=== PATIENT | female | born 2000 | race Caucasian/White ===

== ENCOUNTER 2022-08-18 17:25 | Emergency (ER) | payer MEDICAID, OTHER, SELFPAY ==
[2022-08-18] MEDS ORDERED: Dexamethasone 20 MG/5 ML VIAL ONE (18:11)
== END 2022-08-18 18:20 | disposition home or self-care (01) ==
LOC: NAV ERS 17:25
DX: J06.9 Acute upper respiratory infection, unspecified (principal); H66.93 Otitis media, unspecified, bilateral; H69.83 Other specified disorders of Eustachian tube, bilateral; Z87.891 Personal history of nicotine dependence
CPT/HCPCS: 99282; J1100

== ENCOUNTER 2022-09-26 16:10 | Emergency (ER) | payer MEDICAID ==
[~2022-09-26 16:10] MED LIST: Iopamidol 370 76% 100 ML VIAL ONE
[2022-09-26 17:07] LABS: #Basophils 0.1 thou/uL (0.0-0.2); #Eosinphils 0.1 thou/uL (0.0-0.7); #Lymphocytes 2.2 thou/uL (1.20-3.40); #Monocytes 0.7 thou/uL (0.11-0.59); #Neutrophils 4.6 thou/uL (1.40-6.50); %Basophils 0.7 % (0.0-1.0); %Eosinophils 1.1 % (0.0-10.0); %Lymphocytes 29.2 % (28.0-48.0); Hemoglobin 14.4 g/dL (12.0-16.0); Mean Corpuscular HGB CONC 33.2 g/dL (32.0-36.0); Mean Corpuscular Hemoglobin 31.1 pg (25.0-35.0); Mean Corpuscular Volume 93.6 fl (78.0-98.0); Platelet Count 204 10x3/uL (130-400); RBC Distribution Width 11.8 % (11.5-14.5); Red Blood Cell (RBC) Count 4.64 mill/uL (4.00-5.20); White Blood Cell (WBC) Count 7.6 10x3/uL (4.8-10.8)
[2022-09-26 17:24] LABS: Anion Gap 14 mmol/L (10-20); BUN (Urea Nitrogen) 15 mg/dL (7.0-18.7); Calc. Creatinine Clearance 0 mL/min (70-130); Calcium 8.9 mg/dL (7.8-10.44); Carbon Dioxide 24 mmol/L (22-29); Chloride 104 mmol/L (98-107); Estimated GFR 98; Glucose 85 mg/dL (70-105); Potassium 4.1 mmol/L (3.5-5.1); Sodium 138 mmol/L (136-145)
[2022-09-26] MEDS ORDERED: Piperacillin/Tazobactam 4.5 GM VIAL ONE (18:08)
[2022-09-26 18:46] LABS: SARS-CoV-2 NAA Rapid Test Not Detected (NotDetected)
[2022-09-26] MEDS ORDERED: Fentanyl 100 MCG/2 ML VIAL ONE (19:36)
[2022-09-26] MEDS ORDERED: Ondansetron PF 4 MG/2 ML Vial ONE (19:36)
== END 2022-09-26 19:42 | disposition short-term general hospital (02) ==
LOC: NAV ERS 16:10
DX: K35.80 Unspecified acute appendicitis (principal); Z20.822 Contact with and (suspected) exposure to COVID-19; Z87.891 Personal history of nicotine dependence
CPT/HCPCS: 74177; 80048; 85025; 96365; 96375; J2405; J2543; J3010; Q9967; U0002

== ENCOUNTER 2023-04-11 13:31 | Emergency (ER) | payer OTHER | END 2023-04-11 13:57 | disposition left against medical advice (07) | LOC: NAV ERS 13:31 | DX: Z53.21 Procedure and treatment not carried out due to patient leaving prior to being seen by health care provider (principal) ==